=== PATIENT | male | born 1965 | race Caucasian/White ===

== ENCOUNTER 2021-02-23 13:11 | Emergency (ER) | payer OTHER ==
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
[2021-02-23] MEDS ORDERED: Lidocaine 1% with EPINEPHrine 1:100,000 20 ML MDV ONE (14:07)
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
[2021-02-23] MEDS ORDERED: Diphtheria,Pertussis(Acell),Tetanus Vaccine 0.5 ML Syringe IM ONE (15:02)
[2021-02-23] MEDS ORDERED: Acetaminophen 325 MG Tab PO ONE (15:11)
[2021-02-23] MEDS ORDERED: Acetaminophen 500 MG Tab ONE (15:13)
[2021-02-23] MEDS ORDERED: Acetaminophen 500 MG Tab PO ONE (15:15)
== END 2021-02-23 15:45 | disposition home or self-care (01) ==
LOC: KA.ED 13:11
DX: S01.81XA Laceration without foreign body of other part of head, initial encounter (principal); S00.01XA Abrasion of scalp, initial encounter; Z88.8 Allergy status to other drugs, medicaments and biological substances; Z23 Encounter for immunization; V69.9XXA Occupant (driver) (passenger) of heavy transport vehicle injured in unspecified traffic accident, initial encounter
CPT/HCPCS: 12014; 70450; 71046; 73000; 90471; 90715; 99285; A9270; 12013; 99283